=== PATIENT | female | born 1990 | race African-American/Black ===

== ENCOUNTER 2019-08-14 14:31 | Emergency (ER) | payer OTHER, SELFPAY | END 2019-08-14 15:28 | disposition home or self-care (01) | LOC: ERS 14:31 | DX: J01.90 Acute sinusitis, unspecified (principal); M10.9 Gout, unspecified; J45.909 Unspecified asthma, uncomplicated; E78.5 Hyperlipidemia, unspecified; E78.00 Pure hypercholesterolemia, unspecified; I10 Essential (primary) hypertension; E66.9 Obesity, unspecified; Z87.891 Personal history of nicotine dependence; Z79.899 Other long term (current) drug therapy; Z79.51 Long term (current) use of inhaled steroids | CPT/HCPCS: 87804; 99283 ==

== ENCOUNTER 2019-10-23 10:47 | Outpatient (CLI) | payer OTHER ==
--- NOTE | 2019-10-23 11:30 | RAD ---
PA AND LATERAL VIEWS CHEST: Date: 10/23/2019 HISTORY: Cough. FINDINGS: Comparison made with exam of 08/19/2016. The heart size is normal. The lungs are expanded without lobar consolidation, pneumothoraces, or pleu ral effusions. IMPRESSION: No radiographic evidence of acute cardiopulmonary process. POS: [facility]
== END 2019-10-23 10:48 | disposition home or self-care (01) ==
LOC: RAD-FRANK 10:47
PROVIDERS: ATTEND Nurse Practitioner Family
DX: R05 Cough (principal)
CPT/HCPCS: 71046

== ENCOUNTER 2023-10-01 09:39 | Emergency (ER) | payer SELFPAY ==
[2023-10-01] MEDS ORDERED: Ipratropium/Albuterol 3 ML NEB ONE (10:03)
[2023-10-01] MEDS ORDERED: Ipratropium Bromide 2.5 ml Neb ONE (11:12)
[2023-10-01] MEDS ORDERED: Albuterol 2.5 MG (0.5 mL) NEB ONE (11:13)
[2023-10-01] MEDS ORDERED: predniSONE 20 MG TAB ONE (11:14)
== END 2023-10-01 12:20 | disposition home or self-care (01) ==
LOC: ERS 09:39
DX: J45.901 Unspecified asthma with (acute) exacerbation (principal); E78.00 Pure hypercholesterolemia, unspecified; I10 Essential (primary) hypertension; E66.9 Obesity, unspecified; M10.9 Gout, unspecified; Z55.6 Problems related to health literacy; Z79.899 Other long term (current) drug therapy
CPT/HCPCS: 94640; J7512; J7611; J7620